=== PATIENT | female | born 1990 | race Caucasian/White ===

== ENCOUNTER 2016-05-09 19:34 | Emergency (ER) | payer OTHER ==
[~2016-05-09] VITALS: Ht 154.9 cm; Wt 59.0 kg
[~2016-05-09 19:34] MED LIST: FLOV220 INHALATION; PREN-39 PO; TRAM50TA2 PO
[2016-05-09 19:48] VITALS: Ht 154.9 cm; Wt 59.0 kg
[2016-05-09] MEDS ORDERED: ONDANSETRON 4 MG INJ IV STA (20:39)
[2016-05-09] MEDS ORDERED: SOD CHLORIDE 0.9% 250 ML IV ONE (21:00)
[2016-05-09 21:01] LABS: URINE BLOOD (Dip) POC Negative (NEGATIVE)
[2016-05-09] MEDS ORDERED: ACETAMINOPHEN 325 MG TAB PO ONE (22:00)
--- NOTE | 2016-05-09 22:40 | ERD ---
ER Documentation Chief Complaint Date/Time DATE: 05/09/16 TIME: 22:30 Chief Complaint vomiting/diarreha/abd pain since yesterday HPI Pleasant 26-year-old female presenting to emergency department today for nausea , vomiting, diarrhea. Patient reports sudden onset yesterday, patient reports abdominal pain in her low abdomen unable to tolerate solids, patient is trying to stay hydrated with sports drinks. Patient reports that she continues to vomit after eating, reports to many diarrhea stools to count today, vomiting 3. Patient states her daughter has had similar symptoms. Patient denies travel outside of the [place], denies possibility of , denies dysuria, blood in stool or emesis. Denies dizziness or headache, patient denies back pain, reports feeling dehydrated, weak and fatigued. ROS All systems reviewed and are negative except as per history of present illness. Medications Home Meds Active Scripts Tramadol HCl (Tramadol HCl) 50 Mg Tablet, 50 MG PO Q4 Y for PAIN, #20 TAB Prov:BENI SHAH PA-C 12/03/15 Reported Medications Fluticasone Propionate* (Flovent* HFA 220) 12 Gm Inha, 2 PUFF INHALATION BID, # 1 INHALER 09/25/15 Vits W-Ca,Fe,Fa(<1MG) ( Vitamins) 1 Tab Tablet, 1 TAB PO DAILY , TAB 07/02/15 Allergies Allergies: Coded Allergies: No Known Drug Allergies (Verified Allergy, Unknown, 12/03/15) PMhx/Soc History of Surgery: No Anesthesia Reaction: No Hx Neurological Disorder: No Hx Respiratory Disorders: Yes (asthma) Hx Cardiac Disorders: No Hx Psychiatric Problems: No Hx Miscellaneous Medical Probl: No Hx Alcohol Use: Yes (occassional) Hx Substance Use: No Hx Tobacco Use: No Physical Exam Vitals Vital Signs Date Time Temp Pulse Resp B/P Pulse Ox O2 Delivery O2 Flow Rate FiO2 05/09/16 19:48 99.5 120 20 126/66 98 Vitals stable, nursing notes reviewed Physical Exam Const: No acute distress Head: Atraumatic Eyes: Normal Conjunctiva clear, not sunken into eyes, no pallor or jaundice. EOMI, PERRLA ENT: Normal External Ears, Nose and Mouth. Mucous membranes moist Neck: Full range of motion..~ No meningismus. Resp: Cardio: Abd: Soft, generalized tenderness, non distended. Normal bowel sounds Skin: Supple, capillary refill brisk, no skin tenting Back: No midline or flank tenderness Ext: Neur: Awake and alert Psych: Normal Mood and Affect Results 24 hrs Laboratory Tests Test 05/09/16 21:04 Bedside Urine Blood Negative Bedside Urine Glucose (UA) Negative Bedside Urine Ketones (LAB) 2+ Bedside Urine Leukocyte Esterase (L Negative Bedside Urine Nitrite (LAB) Negative Bedside Urine Protein (LAB) 1+ Bedside Urine pH (LAB) 7.0 Current Medications Medications (Trade) Dose Ordered Sig/Avani Route PRN Reason Start Time Stop Time Status Last Admin Dose Admin Ondansetron HCl 4 mg 4 mg ONCE STAT IV 05/09/16 20:39 05/09/16 20:40 DC 05/09/16 21:55 Sodium Chloride (NS) 250 ml @ 250 mls/hr Q1H ONCE IV 05/09/16 21:00 05/09/16 21:59 DC 05/09/16 21:56 Acetaminophen (Tylenol Tab) 650 mg ONCE ONCE PO 05/09/16 22:00 05/09/16 22:01 DC 05/09/16 21:55 Procedures/MDM Pleasant 26-year-old female coming in with nausea vomiting and diarrhea 1 day. Patient has a sick daughter at home with similar symptoms. Cholelithiasis, biliary colic, appendicitis, all considered unlikely, symptoms history and physical exam finding consistent with a viral gastritis. Patient treated with normal saline and Zofran, developed a headache while in emergency department received Tylenol, interventions all effective, patient feeling improvement of symptoms before leaving emergency department today. I feel the patient is stable for discharge at this time. I have discussed results, examination findings, the treatment plan with the patient and family present prior to discharge. Indications for emergent reevaluation, side effects of medication were also discussed. All questions were answered. Patient verbalizes understanding and agrees with plan of care. Departure Diagnosis: Primary Impression: Nausea, vomiting, and diarrhea Condition: Good Patient Instructions: Gastritis (Adult) Additional Instructions: Thank you for for coming to [facility] for your care today. Please ask your nurse or provider if you have questions about your care today and do not leave until all your questions have been answered. Please use any medications given as directed and follow-up with your doctor (or the doctor you were referred to) in the next 2-3 days. If you do not have a primary care doctor you may follow up [place] [facility] [place] (listed [place]). You may also use motrin and tylenol as needed for fever and/or pain unless instructed otherwise by your provider or nurse. Indications for more urgent follow-up have been discussed, but you may return to the Emergency Department at ANY time for any worrisome or worsening symptoms. If you have abdominal pain, please know that no test or exam you received is perfect and you should follow up within 8 hours for continued pain. If you had any imaging studies today, such as an X-Ray or CT Scan, these studies will be reviewed later by a radiologist. You will be called if there are important findings that were not identified today, so make sure the contact information you provided at registration is correct. If you received any narcotic pain control medicine today, such as Vicodin, Morphine or Dilaudid, your coordination and judgment may be affected for a number of hours. Please do not drive or operate heavy machinery, and you may want someone to assist you at home. If you were given a prescription for narcotic medication, be aware that it is very addictive- use sparingly and only if necessary. BELEN BATEMAN May 09, 2016 22:40
[2016-05-09] MEDS ORDERED: ONDA4TAB14 PO (22:41)
[2016-05-09 23:02] VITALS: BP 99/55; PULSE 96; RESP 18; TEMP 98.2
== END 2016-05-09 23:03 | disposition home or self-care (01) ==
LOC: FTE 19:34
DX: R11.2 Nausea with vomiting, unspecified (principal); R19.7 Diarrhea, unspecified; J45.909 Unspecified asthma, uncomplicated
CPT/HCPCS: 81003; 96374; J2405; J7040; Z7502; Z7610